=== PATIENT | male | born 1965 | race Hispanic/Latino ===

== ENCOUNTER 2023-11-25 10:06 | Emergency (ER) | payer OTHER ==
[~2023-11-25] VITALS: Ht 172.7 cm; Wt 81.6 kg
[2023-11-25] MEDS ORDERED: MIDAZOLAM HCL 2 MG/2 ML VIAL ONE ×2 (10:19→10:20)
[2023-11-25] MEDS: MIDAZOLAM HCL 2 MG/2 ML VIAL IM ONE (10:20)
[2023-11-25] MEDS: LEVETIRACETAM 500MG/5ML VIAL 2,000 MG in SODIUM CHLORIDE 0.9% 100 ML IV ONE (10:48)
[2023-11-25 10:50] LABS: INR 0.9; PROTHROMBIN TIME 12.8 seconds (11.9-14.5)
[2023-11-25 10:52] LABS: BASOPHILS % 0.4 % (0.0-1.0); EOSINOPHILS # (AUTO) 0.1 (0.0-0.4); EOSINOPHILS % 2.5 % (0.0-6.0); HEMATOCRIT 40.8 % (38.2-49.6); HEMOGLOBIN 13.7 g/dL (14.0-18.0); LYMPHOCYTES % 35.1 % (18.0-39.1); MEAN CORPUSCULAR HEMOGLOBIN 30.7 pg (28-32); MEAN CORPUSCULAR HGB CONC 33.6 g/dL (31-35); MEAN CORPUSCULAR VOLUME 91.5 fL (81-99); MONOCYTES # (AUTO) 0.7 (0.2-0.8); MONOCYTES % 11.6 % (4.4-11.3); NEUTROPHILS # (AUTO) 2.9 (2.1-6.9); NEUTROPHILS % 50.2 % (38.7-80.0); PLATELET COUNT 348 x10e3/uL (140-360); RED BLOOD COUNT 4.46 x10e6/uL (4.3-5.7); RED CELL DISTRIBUTION WIDTH 13.4 % (11.7-14.4); WHITE BLOOD COUNT 5.69 x10e3/uL (4.8-10.8)
[2023-11-25 11:07] LABS: ALBUMIN 3.9 g/dL (3.5-5.0); ALBUMIN/GLOBULIN RATIO 1.3 (0.8-2.0); BILIRUBIN,TOTAL 0.8 mg/dL (0.2-1.2); CALCIUM 9.1 mg/dL (8.4-10.2); CREATININE, SERUM 0.73 mg/dL (0.72-1.25); TOTAL PROTEIN 6.9 g/dL (6.5-8.1)
[2023-11-25 11:14] LABS: VALPROIC ACID 20 ug/mL (50-100)
[2023-11-25 11:16] LABS: TROPONIN I < 0.001 ng/mL (0-0.300)
[2023-11-25 14:00] VITALS: TEMP 98.5
[2023-11-25 15:03] VITALS: PULSE 71; RESP 17
[2023-11-25 16:06] VITALS: BP 141/95; PULSE 70; RESP 17; TEMP 98.5; O2SAT 99
== END 2023-11-25 16:06 | disposition short-term general hospital (02) ==
LOC: ER 10:14
DX: R56.9 Unspecified convulsions (principal); I10 Essential (primary) hypertension
CPT/HCPCS: 36415; 70450; 80053; 80164; 84484; 85025; 85610; 93005; 99284; J1953; J2250; J7050

== ENCOUNTER 2024-05-11 14:41 | Emergency (ER) | payer OTHER ==
[~2024-05-11] VITALS: Ht 172.7 cm; Wt 81.6 kg
[2024-05-11 14:57] VITALS: PULSE 87; RESP 18; TEMP 98.5; O2SAT 99
== END 2024-05-11 15:24 | disposition home or self-care (01) ==
LOC: ER 14:50
DX: R42 Dizziness and giddiness (principal); I10 Essential (primary) hypertension; F17.210 Nicotine dependence, cigarettes, uncomplicated
CPT/HCPCS: 99282